=== PATIENT | male | born 1975 ===

== ENCOUNTER 2021-09-27 16:04 | Outpatient (REF) | payer SELFPAY ==
[2021-09-30 14:02] LABS: Chlamydia Result Negative (Negative); GC Result Negative (Negative)
== END 2021-09-27 16:05 | disposition home or self-care (01) ==
LOC: LBN 16:04
PROVIDERS: Visit Provider Physician Assistant Medical
DX: Z11.3 Encounter for screening for infections with a predominantly sexual mode of transmission (principal); R30.0 Dysuria
CPT/HCPCS: 87491; 87591